=== PATIENT | female | born 1985 | race Caucasian/White ===

== ENCOUNTER 2017-04-10 13:40 | Emergency (ER) | payer OTHER ==
[2017-04-10 14:33] LABS: HEMOGLOBIN 13.1 gm/dl (12.3-15.3); RED BLOOD COUNT 4.62 M/UL (4.00-5.10); WHITE BLOOD COUNT 10.4 K/UL (4.5-11.0)
[2017-04-10 15:01] LABS: BUN/CREATININE RATIO 27 (0-10)
== END 2017-04-10 16:01 | disposition home or self-care (01) ==
LOC: ER1 13:40
PROVIDERS: Emergency Medicine
DX: K29.70 Gastritis, unspecified, without bleeding (principal)
CPT/HCPCS: 36415; 74022; 80053; 81001; 82150; 83690; 84703; 85025; 85610; 85730; 96361; 96374; 96375; 99284; J2405

== ENCOUNTER 2021-02-22 21:06 | Emergency (ER) | payer OTHER ==
[~2021-02-22 21:06] MED LIST: COLACE 100MG C100 MG PO; IBUPROFEN600 MG PO; PRENATAL VITAM1 EAC8 PO; TYLENOL 500 MG500 MG PO
[2021-02-22 22:53] LABS: HEMOGLOBIN 12.9 gm/dl (12.3-15.3); RED BLOOD COUNT 4.55 M/UL (4.00-5.10); WHITE BLOOD COUNT 11.2 K/UL (4.5-11.0)
[2021-02-22 23:21] LABS: BUN/CREATININE RATIO 25 (0-10)
== END 2021-02-23 01:39 | disposition home or self-care (01) ==
LOC: ER1 21:06
PROVIDERS: Emergency Medicine
DX: R07.2 Precordial pain (principal); E66.9 Obesity, unspecified; R07.89 Other chest pain
CPT/HCPCS: 80053; 82550; 82553; 83874; 84484; 85025; 93005; 99285